=== PATIENT | female | born 1990 | race Hispanic/Latino ===

== ENCOUNTER 2021-02-14 09:04 | Emergency (ER) | payer MEDICAID, OTHER ==
[2021-02-14 10:03] VITALS: BP 114/66
--- NOTE | 2021-02-14 11:40 | Emergency Department Report ---
ED Extremity Problem HPI - General Chief complaint: Extremity Injury, Lower Stated complaint: OPEN WOUND ON TOP OF LT FOOT Time Seen by Provider: 02/14/21 11:31 Source: patient Mode of arrival: Ambulatory Limitations: No Limitations - History of Present Illness Initial comments: 30-year-old female presents to the emergency room for left great toe wound x1 month. Patient reports that she has been to 2 different emergency room's and have been placed on 2 types of antibiotics. He states it has improved some but she will often get sharp pains. She states that touching it a bump in it the pain is worse. She denies any fever no chills no drainage she states that is getting deeper but not wider. Has any past medical history currently takes no medications on a daily basis. Onset/Timin -: month(s) Location: left, lower extremity, other (Proximal metatarsal great toe) History of Same: Yes Severity scale (0 -10): 6 Quality: sharp Consistency: intermittent Improves with: nothing Worsens with: weight bearing, palpation Associated Symptoms: denies other symptoms - Related Data Home Medications Medication Instructions Recorded Confirmed Last Taken Albuterol Mdi (or & Nicu Only) 2 puff IH QID PRN 05/17/13 06/17/14 06/15/14 20:00 [Proair] Previous Rx's Medication Instructions Recorded Last Taken Type Ibuprofen [Motrin] 600 mg PO Q8H PRN #20 tablet 06/17/14 Unknown Rx traMADoL [Ultram] 50 mg PO Q4HR PRN #14 tablet 06/17/14 Unknown Rx Allergies Allergy/AdvReac Type Severity Reaction Status Date / Time No Known Allergies Allergy Verified 06/17/14 18:41 ED Review of Systems ROS: Stated complaint: OPEN WOUND ON TOP OF LT FOOT Other details as noted in HPI Comment: All other systems reviewed and negative ED Past Medical Hx - Past Medical History Hx Hypertension: No Hx Congestive Heart Failure: No Hx Diabetes: No Hx Deep Vein Thrombosis: No Hx Renal Disease: No Hx Sickle Cell Disease: No Hx Seizures: No Hx Asthma: Yes (last used meds 1wk ago) Hx COPD: No Hx HIV: No - Surgical History Additional Surgical History: LEFT FOOT SURGERY. - Social History Smoking Status: Current Every Day Smoker Substance Use Type: None - Medications Home Medications: Home Medications Medication Instructions Recorded Confirmed Last Taken Type Albuterol Mdi (or & Nicu Only) 2 puff IH QID PRN 05/17/13 06/17/14 06/15/14 20:00 History [Proair] Ibuprofen [Motrin] 600 mg PO Q8H PRN #20 tablet 06/17/14 Unknown Rx traMADoL [Ultram] 50 mg PO Q4HR PRN #14 tablet 06/17/14 Unknown Rx ED Physical Exam - General Limitations: No Limitations General appearance: alert, in no apparent distress - Head Head exam: Present: atraumatic, normocephalic - Eye Eye exam: Present: normal appearance - ENT ENT exam: Present: normal external ear exam - Neck Neck exam: Present: normal inspection, full ROM - Respiratory Respiratory exam: Absent: accessory muscle use - Cardiovascular Cardiovascular Exam: Present: regular rate - Expanded Lower Extremity Exam Left Hip exam: Present: full ROM Upper Leg exam: Present: normal inspection, full ROM Knee exam: Present: normal inspection, full ROM Lower Leg exam: Present: normal inspection, full ROM Ankle exam: Present: normal inspection, full ROM Foot/Toe exam: Present: tenderness, swelling, erythema Neuro vascular tendon exam: Present: no vascular compromise Gait: Positive: observed and normal - Back Exam Back exam: Present: normal inspection - Neurological Exam Neurological exam: Present: alert, oriented X3, normal gait - Psychiatric Psychiatric exam: Present: normal affect, normal mood - Expanded Skin Exam Expanded Description of rash: Present: other (Open wound size of a dime good granulation about 1-1/2 mm deep tender to touch and surrounding erythematous with some s welling) ED Course Vital Signs 02/14/21 10:02 Temperature 98.9 F Pulse Rate 94 H Respiratory 12 Rate Blood Pressure 114/66 [Right] O2 Sat by Pulse 100 Oximetry ED Medical Decision Making - Radiology Data Radiology results: report reviewed [facility] [address] [place] [address] XRay Report Signed Patient: ROYAL HANNAH MR#: [id number] : 1990 Acct:[id number] Age/Sex: 30 / F ADM Date: 02/14/21 Loc: ED Attending Dr: Ordering Physician: RISHI ADHIKARI Date of Service: 02/14/21 Procedure(s): XR foot 2V LT Accession Number(s): [id number] cc: RISHI ADHIKARI Fluoro Time In Minutes: Left foot radiograph, 2 views HISTORY: Left foot wound COMPARISON: 06/17/2014. FINDINGS: Soft tissue swelling and small gas lucency along the medial aspect of the great toe MTP joint consistent with reported skin wound. No aggressive cortical destructive changes. Fusion of the second toe proximal and middle phalanx, widening of the third and fourth PIP joints, and deformity of the fifth toe middle phalanx are unchanged, likely postoperative. Stable bone anchor in the calcaneus. No acute fracture or malalignment. IMPRESSION: Skin wound along the medial great toe without evidence of acute osteomyelitis. Signer Name: Adis Ojeda MD Signed: 02/14/2021 1:47 PM Workstation Name: [id number] Transcribed By: LIZZY Dictated By: ADIS OJEDA MD Electronically Authenticated By: ADIS OJEDA MD Signed Date/Time: 02/14/21 1347 DD/ 1344 TD/TT: - Medical Decision Making 30-year-old female presents to the emergency room for left great toe wound x1 month. Patient reports that she has been to 2 different emergency room's and have been placed on 2 types of antibiotics. He states it has improved some but she will often get sharp pains. She states that touching it a bump in it the pain is worse. She denies any fever no chills no drainage she states that is getting deeper but not wider. Has any past medical history currently takes no medications on a daily basis. X-ray of left foot rule out osteomyelitis. X-ray of left foot shows no osteomyelitis. Patient was referred to wound care clinic and can take Tylenol or ibuprofen for pain management. Critical care attestation.: If time is entered above; I have spent that time in minutes in the direct care of this critically ill patient, excluding procedure time. ED Disposition Clinical Impression: Wound of left foot Disposition: HOME / SELF CARE / HOMELESS Is pt being admited?: No Does the pt Need Aspirin: No Condition: Stable Instructions: Wound Care, Adult Additional Instructions: X-ray shows no osteomyelitis/bone infection. It is imperative that you follow- up with the wound care clinic I have listed their information below. You do not need any antibiotics at this time and should take [id number] ibuprofen Tylenol or naproxen for pain. Referrals: PRIMARY CARE, [Primary Care Provider] - 3-5 Days [facility]Outside] - 3-5 Days Time of Disposition: 14:14
--- NOTE | 2021-02-14 13:52 | XRay Report ---
Left foot radiograph, 2 views HISTORY: Left foot wound COMPARISON: 06/17/2014. FINDINGS: Soft tissue swelling and small gas lucency along the medial aspect of the great toe MTP deepak nt consistent with reported skin wound. No aggressive cortical destructive changes. Fusion of the sec ond toe proximal and middle phalanx, widening of the third and fourth PIP joints, and deformity of th e fifth toe middle phalanx are unchanged, likely postoperative. Stable bone anchor in the calcaneus. No acute fracture or malalignment. IMPRESSION: Skin wound along the medial great toe without evidence of acute osteomyelitis. Signer Name: Bhavesh Manrique MD Signed: 02/14/2021 1:47 PM Workstation Name: [id number]
== END 2021-02-14 15:11 | disposition home or self-care (01) ==
LOC: ED 09:04
DX: S91.102A Unspecified open wound of left great toe without damage to nail, initial encounter (principal); J45.909 Unspecified asthma, uncomplicated; Z98.890 Other specified postprocedural states; F17.200 Nicotine dependence, unspecified, uncomplicated; X58.XXXA Exposure to other specified factors, initial encounter; Y93.89 Activity, other specified; Y92.89 Other specified places as the place of occurrence of the external cause; Y99.8 Other external cause status
CPT/HCPCS: 99283